=== PATIENT | female | born 1980 | race Caucasian/White ===

== ENCOUNTER 2016-12-29 12:16 | Emergency (ER) | payer OTHER ==
[2016-12-29 12:23] VITALS: TEMP 98.2; BMI 24.0
--- NOTE | 2016-12-29 15:08 | PDOC ---
History of Present Illness - General Chief Complaint: Pain Stated Complaint: PAIN Time Seen by Provider: 12/29/16 14:56 History Source: Patient Exam Limitations: No Limitations - History of Present Illness Travel History: No Initial Comments: 12/29/16 15:05 36 yr female with c/o left flank pain urinary hesitancy and dysuria for 4-5 days. Pt has lower abd cramping last week, LMP last month. no fever or chills, no vaginal discharge. no nvd Timing/Duration: reports: constant Past History - Past Medical History Allergies/Adverse Reactions: Allergies Allergy/AdvReac Type Severity Reaction Status Date / Time No Known Allergies Allergy Verified 12/29/16 12:23 Other medical history: NONE - Reproductive History LMP Normal: No (missed last month ) Is Patient Now?: No - Psycho/Social/Smoking Cessation Hx Anxiety: No Suicidal Ideation: No Smoking History: Never smoked Hx Alcohol Use: No Drug/Substance Use Hx: No Substance Use Type: None Abd/GI Specific PMHX - Complaint Specific PMHX Colitis: No Diverticulitis: No Gall Bladder Disease: No GERD: No Hepatitis: No Irritable Bowel Synd (IBS): No Pancreatitis: No GI Ulcer Disease: No Review of Systems - Review of Systems Able to Perform ROS?: Yes Is the patient limited [place] proficient: No Constitutional: No: Symptoms Reported HEENTM: No: Symptoms Reported Respiratory: No: Symptoms reported Cardiac (ROS): No: Symptoms Reported ABD/GI: No: Symptoms Reported : Yes: Symptoms Reported, Flank Pain *Physical Exam - Vital Signs Last Vital Signs Temp Pulse Resp BP Pulse Ox 98.2 F 122 H 20 154/84 99 12/29/16 12:20 12/29/16 12:20 12/29/16 12:20 12/29/16 12:20 12/29/16 12:20 - Physical Exam General Appearance: Yes: Nourished, Appropriately Dressed HEENT: positive: EOMI, SOLITARIO, Normal ENT Inspection, TMs Normal, Pharynx Normal Neck: positive: Supple. negative: Tender Respiratory/Chest: positive: Lungs Clear, Normal Breath Sounds. negative: Chest Tender Cardiovascular: positive: Regular Rhythm, Regular Rate Gastrointestinal/Abdominal: positive: Normal Bowel Sounds, Soft. negative: Tender Musculoskeletal: positive: Normal Inspection, CVA Tenderness (L) Extremity: positive: Normal Capillary Refill, Normal Inspection, Normal Range of Motion Integumentary: positive: Normal Color, Dry, Warm Neurologic: positive: Fully Oriented, Alert, Normal Mood/Affect, Normal Response , Motor Strength / ED Treatment Course - Consult/PCP Time Called: 18:49 Case discussed with consulting physician: Omar Graff Medical Decision Making - Medical Decision Making 12/29/16 15:07 cc: left flank pain and urinary urgency and hesitancy no fever neg nvd no chills will r/o UTI r/o pyelo 12/29/16 17:[address] stone protocol pt comfortable 12/29/16 18:34 ct resulted discussed with patient pt is comfortable at this time, does not want to be admitted states she isn't vomiting and the pain has improved, pt is urinating freely. 12/29/16 18:44 awaiting call back from urology cat scan report given to patient to follow up with the urologist. 12/29/16 18:58 12/29/16 19:05 12/29/16 19:09 *DC/Admit/Observation/Transfer Diagnosis at time of Disposition: Kidney stone on left side - Discharge Dispostion Disposition: HOME Condition at time of disposition: Good - Referrals Referrals: Jeanie Allison MD [Primary Care Provider] - Carlos Kaur MD., [Staff Physician] - - Patient Instructions Additional Instructions: drink at least 2 liters of water take motrin 800mg every 6hrs for severe pain take motrin 400-600mg for mild to moderate pain
[2016-12-29 16:39] LABS: URINE APPEARANCE CLEAR; URINE BILIRUBIN NEGATIVE (NEGATIVE); URINE COLOR LTYELLOW; URINE GLUCOSE (UA) NEGATIVE (NEGATIVE); URINE KETONE NEGATIVE (NEGATIVE); URINE LEUK ESTERASE NEGATIVE (NEGATIVE); URINE NITRITE NEGATIVE (NEGATIVE); URINE PROTEIN NEGATIVE (NEGATIVE); URINE UROBILINOGEN NEGATIVE E.U./dl (0.2-1.0)
[2016-12-29 16:40] LABS: URINE BLOOD 2+ (NEGATIVE)
[2016-12-29 16:43] LABS: URINE HYALINE CAST 7 /lpf; URINE MUCUS FEW; URINE RBC 113 /hpf (0-3); URINE WBC 7 /hpf (3-5)
[2016-12-29 19:32] VITALS: BP 146/72; PULSE 98
== END 2016-12-29 19:13 | disposition home or self-care (01) ==
LOC: JER 12:16
DX: N23 Unspecified renal colic (principal)
CPT/HCPCS: 74176; 81003; 81015; 84703; 87086; 99284-25

== ENCOUNTER 2017-12-01 12:42 | Emergency (ER) | payer OTHER ==
[2017-12-01 12:50] VITALS: BP 121/83; PULSE 118; TEMP 98.2; BMI 25.7
[2017-12-01 13:49] LABS: URINE APPEARANCE CLEAR; URINE BILIRUBIN NEGATIVE (NEGATIVE); URINE BLOOD NEGATIVE (NEGATIVE); URINE COLOR STRAW; URINE GLUCOSE (UA) NEGATIVE (NEGATIVE); URINE KETONE NEGATIVE (NEGATIVE); URINE LEUK ESTERASE NEGATIVE (NEGATIVE); URINE NITRITE NEGATIVE (NEGATIVE); URINE PROTEIN NEGATIVE (NEGATIVE); URINE UROBILINOGEN NEGATIVE mg/dL (0.2-1.0)
[2017-12-01 13:50] LABS: HCG,QUALITATIVE URINE NEGATIVE
[2017-12-01] MEDS ORDERED: IBUPROFEN 600 MG TABLET (FP) PO ONE ×2 (14:14→15:27)
[2017-12-01 15:27] LABS: BASO % 0.3 % (0-2.0); EOS % 0.3 % (0-4.5); HEMATOCRIT 43.6 % (32.4-45.2); HEMOGLOBIN 14.3 GM/dL (10.7-15.3); LYMPH % 9.9 % (8-40); MCH 27.9 pg (25.7-33.7); MCHC 32.9 g/dl (32.0-36.0); MEAN CELL VOLUME 84.9 fl (80-96); MEAN PLT VOLUME 9.2 fl (7.5-11.1); MONO % 5.7 % (3.8-10.2); NEUT % 83.8 % (42.8-82.8); PLATELET COUNT 335 K/MM3 (134-434); RBC 5.13 M/mm3 (3.60-5.2); RDW 15.5 % (11.6-15.6); WHITE BLOOD COUNT 12.1 K/mm3 (4.0-10.0)
--- NOTE | 2017-12-01 15:28 | PDOC ---
History of Present Illness - General Chief Complaint: Pain, Acute Stated Complaint: PAIN (PCP SENT) Time Seen by Provider: 12/01/17 13:28 - History of Present Illness Initial Comments: 12/01/17 15:24 "The patient is a 37 year old female, with a significant past medical history of kidney stones, who presents to the emergency department with left flank pain for approximately 4 days. Patient reports her pain is worse when taking a breath , but denies any associated SOB, chest pain, diaphoresis, palpitations, or leg cramping. She denies any dysuria, hematuria, frequency, or urgency. Patient reports her symptoms are similar to when shes had a kidney stone in the past. However, yesterday patient reports visiting an Urgent Care where she had a urinalysis which was negative and a CT Abdomen and Pelvis which did not show a kidney stone. Patient denies any nausea, vomiting, diarrhea, or constipation. Denies any fever or chills. She denies any recent travel, sick contacts, or contraceptive use. Pt was sent from urgent care to r/o PE given pleuritic nature of pain. Allergies: NKDA Past Surgical history: None reported. Social History: Non smoker. No ETOH or recreational drug use. " Past History - Past Medical History Allergies/Adverse Reactions: Allergies Allergy/AdvReac Type Severity Reaction Status Date / Time No Known Allergies Allergy Verified 12/01/17 12:46 Home Medications: Ambulatory Orders NK [No Known Home Medication] 12/01/17 COPD: No - Immunization History Immunization Up to Date: Yes - Suicide/Smoking/Psychosocial Hx Smoking History: Never smoked Hx Alcohol Use: No Drug/Substance Use Hx: No Substance Use Type: None Review of Systems - Review of Systems Comments:: 12/01/17 15:26 "GENERAL/CONSTITUTIONAL: No fever or chills. No weakness. HEAD, EYES, EARS, NOSE AND THROAT: No change in vision. No ear pain or discharge. No sore throat. CARDIOVASCULAR: No chest pain or shortness of breath. RESPIRATORY: No cough, wheezing, or hemoptysis. GASTROINTESTINAL: No nausea, vomiting, diarrhea or constipation. GENITOURINARY: Yes left flank pain worse with breathing. No dysuria, frequency, or change in urination. MUSCULOSKELETAL: No joint or muscle swelling or pain. No neck or back pain. SKIN: No rash NEUROLOGIC: No headache, vertigo, loss of consciousness, or change in strength/ sensation. ENDOCRINE: No increased thirst. No abnormal weight change. HEMATOLOGIC/LYMPHATIC: No anemia, easy bleeding, or history of blood clots. ALLERGIC/IMMUNOLOGIC: No hives or skin allergy. " *Physical Exam - Vital Signs Last Vital Signs Temp Pulse Resp BP Pulse Ox 98.2 F 118 H 18 121/83 100 12/01/17 12:46 12/01/17 12:46 12/01/17 12:46 12/01/17 12:46 12/01/17 12:46 - Physical Exam Comments: 12/01/17 15:26 "GENERAL: Awake, alert, and fully oriented, in no acute distress HEAD: No signs of trauma EYES: PERRLA, EOMI, sclera anicteric, conjunctiva clear ENT: Auricles normal inspection, hearing grossly normal, nares patent, oropharynx clear without exudates. Moist mucosa NECK: Nontender, no stepoffs, Normal ROM, supple, no lymphadenopathy, JVD, or masses LUNGS: Breath sounds equal, clear to auscultation bilaterally. No wheezes, and no crackles HEART: Regular rate and rhythm, normal S1 and S2, no murmurs, rubs or gallops ABDOMEN: Soft, nontender, normoactive bowel sounds. No guarding, no rebound. No masses BACK: +L CVAT EXTREMITIES: Normal range of motion, no edema. No clubbing or cyanosis. No cords, erythema, or tenderness NEUROLOGICAL: Cranial nerves II through XII intact. 5/5 strength and sensation in all extremities, Normal speech, normal gait, normal cerebellar function SKIN: Warm, Dry, normal turgor, no rashes or lesions noted. " Heart Score/ECG Review - History History: Slightly suspicious - Electrocardiogram EKG: Normal - Age Age: </= 45 - Risk Factors Based on the list above the patient has:: No risk factors known - Troponin Troponin: </= normal limit - Score Heart Score - Total: 0 - ECG Impressions Comment:: 12/01/17 20:23 NSR, no EVARISTO/STDs, no TWIs, axis wnl, intervals wnl ED Treatment Course - LABORATORY CBC & Chemistry Diagram: 12/01/17 15:15 12/01/17 15:15 - ADDITIONAL ORDERS Additional order review: Laboratory Results 12/01/17 13:32 Urine Color Straw Urine Appearance Clear Urine pH 6.0 Ur Specific Wayside 1.005 Urine Protein Negative Urine Glucose (UA) Negative Urine Ketones Negative Urine Blood Negative Urine Nitrite Negative Urine Bilirubin Negative Urine Urobilinogen Negative Ur Leukocyte Esterase Negative Urine HCG, Qual Negative - RADIOLOGY Radiology Studies Ordered: Category Date Time Status CHEST PA & LAT [RAD] Stat Radiology 12/01/17 14:13 Ordered Medical Decision Making - Medical Decision Making 12/01/17 15:26 37 F with L flank pain x 3 days. Had negative UA and CTAP yesterday. Sent in from urgent care for r/o PE given worsening of L flank pain with deep inspiration. Pt however has normal vitals (initially tachycardic but resolved without intervention), no clinical s/s DVT, no DVT risk factors. Pain is most likely msk in etiology. Kidney stone unlikely given normal UA and CT yesterday. - Labs, ddimer - CXR - Pain control 12/01/17 16:36 Labs unremarkable, Ddimer negative. CXR clear. Pt reassessed - now with improved pain s/p motrin. VItals rechecked - HR now normalized to 73. Pt well appearing, vitals normal, clinically stable for DC. *DC/Admit/Observation/Transfer Diagnosis at time of Disposition: Flank pain - Discharge Dispostion Disposition: HOME - Referrals - Patient Instructions Printed Discharge Instructions: DI for Muscle Strain Additional Instructions: Take motrin or tylenol as needed for pain. If you experience worsening pain, pain lasting longer than 2-3 days, chest pain , shortness of breath, or any other concerning symptoms, return to the ER immediately. Otherwise, follow up with your primary doctor within 1 week for a re-evaluation. - Post Discharge Activity - Attestations Physician Attestion: 12/01/17 16:40 I, Dr. Gerber Jeff MD, attest that this document has been prepared under my direction and personally reviewed by me in its entirety. I further attest, that it accurately reflects all work, treatment, procedures and medical decision -making performed by me.
[2017-12-01 15:31] LABS: HCG,QUALITATIVE URINE NEGATIVE
[2017-12-01 15:33] LABS: URINE APPEARANCE CLEAR; URINE BILIRUBIN NEGATIVE (NEGATIVE); URINE BLOOD NEGATIVE (NEGATIVE); URINE COLOR COLORLESS; URINE GLUCOSE (UA) NEGATIVE (NEGATIVE); URINE KETONE NEGATIVE (NEGATIVE); URINE LEUK ESTERASE NEGATIVE (NEGATIVE); URINE NITRITE NEGATIVE (NEGATIVE); URINE PROTEIN NEGATIVE (NEGATIVE); URINE UROBILINOGEN NEGATIVE mg/dL (0.2-1.0)
--- NOTE | 2017-12-01 15:53 | EKG ---
Test Reason : Blood Pressure : / mmHG Vent. Rate : 092 BPM Atrial Rate : 092 BPM P-R Int : 126 ms QRS Dur : 084 ms QT Int : 370 ms P-R-T Axes : 074 005 043 degrees QTc Int : 457 ms NORMAL SINUS RHYTHM WITH SINUS ARRHYTHMIA LOW VOLTAGE QRS BORDERLINE ECG NO PREVIOUS ECGS AVAILABLE Confirmed by LUNA BUCKNER, LOVE ([id number]) on 12/01/2017 3:53:22 PM Referred By: Confirmed By:LOVE CARRASCO MD
[2017-12-01 15:54] LABS: ALBUMIN 4.5 g/dl (3.4-5.0); ANION GAP 9 (8-16); BLOOD UREA NITROGEN 12 mg/dL (7-18); CALCIUM 9.2 mg/dL (8.5-10.1); CHLORIDE 105 mmol/L (98-107); CO2 26 mmol/L (21-32); CREATININE 0.9 mg/dL (0.55-1.02); GLUCOSE,RANDOM 85 mg/dL (74-106); POTASSIUM 4.6 mmol/L (3.5-5.1); SGOT/AST 12 U/L (15-37); SGPT/ALT 13 U/L (12-78); SODIUM 140 mmol/L (136-145)
[2017-12-01 15:55] LABS: ALK PHOS 73 U/L (45-117); BILIRUBIN,TOTAL 0.5 mg/dL (0.2-1.0); TOT PROT 8.4 g/dl (6.4-8.2)
[2017-12-01 15:58] LABS: LIPASE 228 U/L (73-393); N-TERMINAL BNP 37.76 pg/ml (5-125)
== END 2017-12-01 16:55 | disposition home or self-care (01) ==
LOC: JER 12:42
DX: R10.32 Left lower quadrant pain (principal)
CPT/HCPCS: 36415; 71046-TC-FY; 80053; 81003; 82550; 82553; 83690; 83880; 84484; 84703; 85025; 85379; 93005; 93010; 99283-25